=== PATIENT | female | born 1985 | race American Indian/Alaskan Native ===

== ENCOUNTER 2019-04-18 09:15 | Emergency (ER) | payer SELFPAY ==
[2019-04-18] MEDS ORDERED: IBUPROFEN 800 MG TAB PO ONE (09:25)
[2019-04-18] MEDS ORDERED: HYDROcodone/ACETAMINOPHEN 5-325 MG TAB PO ONE (09:25)
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
[2019-04-18 09:37] VITALS: BP 110/69
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
== END 2019-04-18 11:30 | disposition home or self-care (01) ==
LOC: ED 09:15
DX: S02.5XXA Fracture of tooth (traumatic), initial encounter for closed fracture (principal); S01.511A Laceration without foreign body of lip, initial encounter; S40.022A Contusion of left upper arm, initial encounter; Z79.899 Other long term (current) drug therapy; Y04.2XXA Assault by strike against or bumped into by another person, initial encounter; Y93.89 Activity, other specified; Y92.099 Unspecified place in other non-institutional residence as the place of occurrence of the external cause; Y99.8 Other external cause status
CPT/HCPCS: 99283